=== PATIENT | male | born 1955 | race Caucasian/White ===

== ENCOUNTER 2020-02-28 10:48 | Emergency (ER) | payer OTHER, SELFPAY ==
[2020-02-28] VITALS (8 sets, daily range): BP systolic 110–161; BP diastolic 71–104; PULSE 58–79; RESP 11–20; TEMP 37.1; O2SAT 96–99
--- NOTE | ~2020-02-28 | US_ITS ---
EXAMINATION: US right upper quadrant EXAM DATE: 02/28/2020 13:13 INDICATION: Right upper quadrant back pain for about 2 hours. TECHNIQUE: Multiple grayscale and Doppler images of the abdomen right upper quadrant were obtained (b y a technologist who performed the scan) and subsequently reviewed. There is no prior study for rossana grajeda. FINDINGS: The pancreatic head and body are normal in appearance. The pancreatic tail is not visualized. There is echogenic liver parenchyma, hepatic steatosis. There is 7 mm right liver lobe lesion anteriorly with increased through transmission, which could be cyst or hemangioma but ultrasound is nonspecific. There is no evidence of intrahepatic biliary duct dilation. Portal venous flow was seen in the hep atopedal, normal direction and has normal Doppler waveform. No right-sided hydronephrosis. Common bile duct measures 4 mm, which is normal. The gallbladder wall is normal in thickness, with ex pected amount of distention. No sonographic evidence of pericholecystic fluid. There is no cholelit hiases. Technologist performing exam reports patient did not demonstrate sonographic Barrios's sign. Please note that this sign is less reliable in patients who have received pain medication. IMPRESSION: 1. Unremarkable gallbladder. 2. Hepatic steatosis. 3. Subcentimeter liver lesion likely benign. Reviewed, dictated and finalized at location A.
--- NOTE | ~2020-02-28 | CT_ITS ---
EXAMINATION: CTA chest PE abdomen pel DATE: 02/28/2020 15:43 INDICATION: Pleuritic chest pain TECHNIQUE: Computed tomography (CT) pulmonary angiogram of the chest was performed with 100 mL Omnipa que-350 intravenous contrast. Additional 3D reconstructions utilizing coronal maximum intensity proje ction (MIP) were performed. CT of the abdomen and pelvis was performed with intravenous contrast util izing the same contrast bolus following a short delay. Automated exposure control and iterative recon struction technique were employed. The dose-length product was 1967.43 mGy-cm. COMPARISON: None FINDINGS: Chest: Excellent contrast opacification of the pulmonary arteries. There is mild streak artifact from dense contrast in the superior vena cava and right atrium. Mild scattered respiratory motion artifact which does not significantly limit evaluation. No pulmonary embolism. Lungs are clear with no pneumonia, p ulmonary edema or other pulmonary infiltrates, pleural effusion or pneumothorax. Heart size is normal . Atherosclerotic coronary artery calcifications. No pericardial effusion. Thoracic aorta is normal i n caliber with no dissection. No pathologically enlarged thoracic lymphadenopathy. Small sliding-type hiatal hernia. Mild thoracic spondylosis. Abdomen/pelvis: There are few subcentimeter low-attenuation hepatic cysts. Gallbladder, spleen, pancreas, bilateral a drenal glands and left kidney are normal. 2 mm nonobstructing stone at a lower pole calyx of the righ t kidney. No ureteral stones or hydronephrosis. No abnormal bowel wall thickening or obstruction. Antonio dder is normal. No free intraperitoneal gas or fluid. No pathologically enlarged abdominal or pelvic lymphadenopathy. There is mild scattered calcified atherosclerosis of the aorta and many of the other arteries. Incidentally noted circumaortic left renal veins. Partially sacralized L5 segment. Mild lida mbar levocurvature with moderate spondylosis. IMPRESSION: 1. No pulmonary embolism or other acute cardiopulmonary disease. 2. No acute intra-abdominal/pelvic process. Reviewed, dictated and finalized at location A.
--- NOTE | ~2020-02-28 | XR_ITS ---
EXAMINATION: XR chest 2V EXAM DATE: 02/28/2020 11:05 INDICATION: Mid upper right-sided chest pain, shortness of breath. TECHNIQUE: Frontal and lateral projections of the chest obtained and reviewed. Comparison is made to prior examination from 03/18/2007. FINDINGS: The lungs are clear. There are no pleural effusions. The cardiomediastinal silhouette is within normal limits. There is no pneumothorax suspected. The bones and soft tissues are unremarkab le. IMPRESSION: No acute cardiopulmonary findings. Reviewed, dictated and finalized at location A.
--- NOTE | 2020-02-28 10:52 | ECG_ITS ---
Measurements Intervals Elizabeth Rate: 72 P: 20 IA: 169 QRS: 3 QRSD: 97 T: 26 QT: 361 QTc: 397 Interpretive Statements SINUS RHYTHM BASELINE ARTIFACT- I, III, AVL, AVF NORMAL ECG Electronically Signed On 02-28-2020 15:06:12 CDT by Lázaro Butler D.O.
--- NOTE | 2020-02-28 11:05 | PC.NURSE ---
PT TO XRAY AT THIS TIME PER STRETCHER ON [employer]. PT REPORT GIVEN TO HERMES BRITO AT THIS TIME.
[2020-02-28 11:08] LABS: Basophils Percent Auto 0.6 % (0.2-1.2); Eosinophils Absolute Auto 0.1 K/mm3 (0-0.3); Hematocrit 49.5 % (42.0-52.0); Hemoglobin 16.1 g/dL (14.0-18.0); Immature Granulocyte Absolute 0.02 K/mm3 (0.00-0.031); Immature Granulocyte Percent A 0.4 % (0-0.5); Lymphocytes Absolute Auto 1.51 K/mm3 (0.9-3.2); Lymphocytes Percent Auto 32.3 % (18.3-44.2); Mean Corpuscular HGB Conc 32.5 g/dl (32-36); Mean Corpuscular Hemoglobin 30.1 pg (26-34); Mean Corpuscular Volume 92.5 fl (80-100); Mean Platelet Volume 9.1 fl (7.4-10.4); Monocytes Absolute Auto 0.4 K/mm3 (0.1-0.6); Monocytes Percent Auto 8.8 % (2.6-8.5); Neutrophils Absolute Auto 2.6 K/mm3 (1.3-6.7); Neutrophils Percent Auto 54.9 % (45.5-73.1); Platelet Count Result 207 k/mm3 (150-375); Red Blood Count 5.35 M/mm3 (4.6-6.20); Red Cell Distribution Width 12.3 % (11.5-14.5); White Blood Count 4.7 K/mm3 (4.5-10.0)
[2020-02-28 11:18] LABS: Prothrombin Time 12.5 Seconds (11.1-14.7)
[2020-02-28 11:19] LABS: Blood Urea Nitrogen 15 mg/dL (9-20); Calcium 8.8 mg/dL (8.4-10.2); Carbon Dioxide 30 mmol/L (22-30); Chloride 103 mmol/L (98-107); Estimated CRCL calculation 78 ml/min; Estimated Glomerular Filt Rate > 60; Glucose 109 mg/dL (75-110); Partial Thromboplastin Time 28.9 SECONDS (22.3-36.8); Potassium 3.9 mmol/L (3.4-5.0); Sodium 139 mmol/L (137-145)
[2020-02-28 11:31] LABS: Troponin I < 0.012 ng/mL (0.000-0.034)
--- NOTE | 2020-02-28 11:55 | ED.CHESTPAIN ---
HPI - Chest Pain General Chief Complaint: Chest Pain Stated Complaint: chest pain, shortness of breath Time Seen by Provider: 02/28/20 11:08 Source: patient Limitations: no limitations History of Present Illness HPI narrative: Patient presents for evaluation of epigastric pain for the last week. Pain occurs immediately after eating. He describes the pain as sharp. In the last few days he has developed pain in the right scapular region that radiates into the right side of the chest. Pain primarily occurs with inspiration. Denies cough and shortness of breath. No fever, chills, nausea, vomiting. Does report constipation. Surgical history negative. Denies tobacco use and illicit drugs. Drinks ETOH rarely. Last colonoscopy approximately 10 years ago and was normal. He does admit to using ibuprofen frequently as of late. The last few days he has stopped using ibuprofen and started taking PPI twice daily. Related Data Home Medications Medication Instructions Recorded Confirmed esomeprazole magnesium [Nexium] 20 mg PO DAILY 02/28/20 Allergies Allergy/AdvReac Type Severity Reaction Status Date / Time No Known Allergies Allergy Mild Unverified 02/28/20 11:04 Review of Systems Review of Systems: Narrative: CONSTITUTIONAL: Denies fever, chills, or sweats. EYES: Denies visual changes, redness, or discharge. ENT: Denies rhinorrhea, congestion, sore throat, or otalgia. CARDIOVASCULAR: Reports chest pain. Denies palpitations, or edema. RESPIRATORY: Denies cough or dyspnea. GASTROINTESTINAL: Reports abdominal pain and constipation. Denies nausea, vomiting, or diarrhea. GENITOURINARY: Denies dysuria or hematuria. SKIN: Denies rash or itching. MUSCULOSKELETAL: Reports back pain. Denies joint pain, or myalgia. NEUROLOGIC: Denies headache, numbness, dizziness, or weakness. PSYCHIATRIC: Denies anxiety or depression. [facility] Social History Social History (Updated 02/28/20 @ 12:06 by Bimal Guillen, [facility], ) Smoking status: Never smoker Alcohol intake: current Alcohol use details: rare Substance use: never Living arrangements: with family Gender identity (if verbalized by the patient): Male Exam Narrative: Exam Narrative: GENERAL: Well-appearing, well-nourished, and in no acute distress. HEAD: Normocephalic, atraumatic. EYES: PERRLA and EOMI. ENT: Nares clear, no rhinorrhea or epistaxis. Mucous membranes moist. Oropharynx without tonsillar hypertrophy exudate or other lesions. Bilateral TMs pearly shields nonbulging NECK: Supple. No adenopathy or masses. No carotid bruits or JVD CHEST: Poor inspiratory effort. Lungs bilaterally diminished. No respiratory distress. No wheezes rales or rhonchi HEART: Regular rate and rhythm. No murmur heard. Normal peripheral pulses. ABDOMEN: Soft, nontender, nondistended, normal active bowel sounds. EXTREMITIES: Normal range of motion. No edema. SKIN: Warm, dry, no rash. NEURO: No focal deficits. Alert and oriented x3. PSYCH: Normal mood and affect. Course Vital Signs Vital signs: Vital Signs Temperature 37.1 C 02/28/20 10:52 Pulse Rate 73 02/28/20 10:52 Respiratory Rate 20 02/28/20 10:52 Blood Pressure 161/104 H 02/28/20 10:52 Pulse Oximetry 97 02/28/20 10:52 Temperature 37.1 C 02/28/20 10:52 Pulse Rate 62 02/28/20 17:00 Respiratory Rate 11 L 02/28/20 17:00 Blood Pressure 130/87 02/28/20 17:00 Pulse Oximetry 99 02/28/20 17:00 MDM - Chest Pain MDM Narrative Medical decision making narrative: Initial consideration for cholecystitis versus cholelithiasis. Labs were fairly benign. Right upper quadrant ultrasound with no evidence of either. Chest x-ray was negative. Patient initially had reduction in pain with [place]. CT chest for PE protocol and CT abdomen pelvis were added. There was no acute pathology to account for patient's symptoms. Patient likely needs follow-up with GI for EGD and/or HIDA scan. I discussed overall impr
--- NOTE | 2020-02-28 12:01 | PC.NURSE ---
Called lab to add on CMP and lipase.
[2020-02-28 12:11] LABS: Alanine Aminotransferase 26 U/L (4-50); Albumin Level 4.4 g/dL (3.5-5.1); Alkaline Phosphatase 69 U/L (38-126); Aspartate Amino Transferase 26 U/L (17-59); Bilirubin,Total 0.6 mg/dL (0.2-1.3); Blood Urea Nitrogen 16 mg/dL (9-20); Calcium 8.9 mg/dL (8.4-10.2); Carbon Dioxide 29 mmol/L (22-30); Chloride 104 mmol/L (98-107); Estimated CRCL calculation 78 ml/min; Estimated Glomerular Filt Rate > 60; Glucose 109 mg/dL (75-110); Lipase 53 U/L (23-300); Sodium 140 mmol/L (137-145)
[2020-02-28 14:29] LABS: Troponin I < 0.012 ng/mL (0.000-0.034)
--- NOTE | 2020-02-28 16:37 | PC.NURSE ---
PT REMINDED OF NEED FOR UA, REFUSING CATH, ATTEMPTING SPECIMEN. C/O PAIN, ASKING FOR MORE MEDICATIONS, I INFORMED PA CARRY OF PT REQUEST, HE STATES THAT HE WILL GO AND SPEAK WITH PATIENT. HE IS IN PATIENT ROOM AT THIS TIME.
[2020-02-28 17:09] LABS: Add Urine Microscopic? NO; Appearance Urine Clear (Clear); Bilirubin Urine Negative (Negative); Blood Urine Negative (Negative); Color Urine Yellow (Yellow); Glucose Urine UA Negative (Negative); Ketones Urine Negative (Negative); Leukocyte Esterase Ur Negative LEU/UL (Negative); Nitrate Urine Negative (Negative); Protein Urine Negative (Negative); Urobilinogen Urine Negative mg/dL (<2.0)
[2020-02-29 13:55] LABS: SARS-CoV-2 RNA PCR Negative
== END 2020-02-28 17:49 | disposition home or self-care (01) ==
PROVIDERS: Emergency Medicine; Emergency Provider Nurse Practitioner; PCP Family Medicine
DX: R10.13 Epigastric pain (principal); R06.02 Shortness of breath; Z20.828 Contact with and (suspected) exposure to other viral communicable diseases; K76.0 Fatty (change of) liver, not elsewhere classified
CPT/HCPCS: 36415; 71046; 71275; 74177; 76705; 80048; 80053; 81003; 83690; 84484; 85025; 85610; 85730; 87635; 93005; 99284; A9270; Q9967; U0003

== ENCOUNTER 2024-02-22 14:17 | Emergency (ER) | payer MEDICARE, OTHER, SELFPAY ==
--- NOTE | ~2024-02-22 | XR_ITS ---
EXAMINATION: XR finger 5th LT min 2V DATE: 02/22/2024 14:37 INDICATION: Left hand fifth digit injury. TECHNIQUE: 3 views of left hand fifth digit were obtained. COMPARISON: None. FINDINGS: There is a nondisplaced comminuted fracture of radial-sided base of fifth distal phalanx. 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 IMPRESSION: 1. Nondisplaced comminuted fracture of radial-sided base of fifth distal phalanx. Reviewed, dictated and finalized at location E. IMPRESSION: 1. Nondisplaced comminuted fracture of radial-sided base of fifth distal phalan x.
[2024-02-22 14:14] VITALS: PULSE 65; RESP 16; TEMP 36.8; O2SAT 96
[2024-02-22 14:20] VITALS: BP 120/76
[2024-02-22 15:43] VITALS: BP 126/83; PULSE 100; RESP 18; O2SAT 95
--- NOTE | 2024-02-22 16:11 | ED.GENADULT ---
HPI - General Adult General Chief complaint: Wound/Laceration Stated complaint: finger vs log splitter Time Seen by Provider: 02/22/24 15:29 History of Present Illness HPI narrative: 68-year-old male presents for evaluation of multiple lacerations to the left pinky finger. Patient was using a log splitter when accidentally crushed the digit while splitting the log. Tetanus is up-to-date. Related Data Home Medications Medication Instructions Recorded Confirmed esomeprazole magnesium 20 mg 20 mg PO DAILY 02/28/20 capsule,delayed release (Nexium) Allergies Allergy/AdvReac Type Severity Reaction Status Date / Time No Known Allergies Allergy Mild Verified 02/22/24 14:22 Review of Systems Review of Systems: CONSTITUTIONAL: Denies fever, chills, or sweats. EYES: Denies visual changes, redness, or discharge. ENT: Denies rhinorrhea, congestion, sore throat, or otalgia. CARDIOVASCULAR: Denies chest pain, palpitations, or edema. RESPIRATORY: Denies cough or dyspnea. GASTROINTESTINAL: Denies abdominal pain, nausea, vomiting, or diarrhea. GENITOURINARY: Denies dysuria or hematuria. SKIN: Denies rash or itching. MUSCULOSKELETAL: Denies back pain, joint pain, or myalgia. NEUROLOGIC: Denies headache, numbness, or weakness. PSYCHIATRIC: Denies anxiety or depression. [facility] Social History Social History Smoking status: Never smoker Alcohol intake: current Alcohol use details: rare Substance use: never Living arrangements: with family Gender identity (if verbalized by the patient): Male Exam Narrative: GENERAL: Well-appearing, well-nourished, and in no acute distress. HEAD: Normocephalic, atraumatic. EYES: PERRLA and EOMI. ENT: Nares clear, no rhinorrhea or epistaxis. Mucous membranes moist. NECK: Supple. CHEST: Clear to auscultation. No respiratory distress. HEART: Regular rate and rhythm. No murmur heard. Normal peripheral pulses. ABDOMEN: Soft, nontender, nondistended, normal active bowel sounds. EXTREMITIES: Normal range of motion. No edema. 5/5 strength in flexion, extension, abduction, adduction of the pinky. Sensory is intact to light touch. SKIN: Warm, dry, no rash. Multiple lacerations of left pinky finger. Please see photos for better description. NEURO: No focal deficits. Alert and oriented x3. PSYCH: Normal mood and affect. Course Vital Signs Vital signs: Vital Signs Temperature 98.3 F 02/22/24 14:14 Pulse Rate 65 02/22/24 14:14 Respiratory Rate 16 02/22/24 14:14 Pulse Oximetry 96 02/22/24 14:14 Temperature 98.3 F 02/22/24 14:14 Pulse Rate 100 02/22/24 15:43 Respiratory Rate 18 02/22/24 15:43 Blood Pressure 126/83 02/22/24 15:43 Pulse Oximetry 95 02/22/24 15:43 Procedures Laceration Laceration 1: Side (If applicable): left Size (cm): 3 Description: linear and irregular Depth: simple, single layer Local Anesthetic: lidocaine 1% and other anesthetic ====== Skin Level ====== Skin layer closed with: nylon Size (cm): 5-0 Number of sutures: 7 ====== Subcutaneous Layer ====== ====== Muscle Layer ====== ====== Tendon Layer ====== Number of sutures: 7 Technique: other (Running) Laceration 2: Site: hand Side (If applicable): left Size (cm): 1.5 Local Anesthetic: lidocaine 1% and other anesthetic ====== Skin Level ====== Skin layer closed with: nylon Size (cm): 5-0 Number of sutures: 10 Technique: simple, interrupted ====== Subcutaneous Layer ====== ====== Muscle Layer ====== ====== Tendon Layer ====== Medical Decision Making MDM Narrative Medical decision making narrative: 68-year-old male with crush injury to left pinky finger. Multiple lacerations noted on digit. He was wearing thick leather gloves when the i
[2024-02-22] MEDS: HYDROcodone/acetaminophen (*CRX) 7.5-325 MG TABLET 1 TAB PO (16:22)
[2024-02-22] MEDS: LIDOCAINE HCL 1% LOCAL INJ 10 ML VIAL (16:23)
[2024-02-22 19:27] VITALS: BP 142/87; PULSE 75; RESP 17; O2SAT 99
== END 2024-02-22 19:28 | disposition home or self-care (01) ==
PROVIDERS: Emergency Provider Emergency Medicine; PCP Family Medicine
DX: S61.217A Laceration without foreign body of left little finger without damage to nail, initial encounter (principal); S62.667A Nondisplaced fracture of distal phalanx of left little finger, initial encounter for closed fracture; W31.89XA Contact with other specified machinery, initial encounter
CPT/HCPCS: 12002; 73140; 99283; A9270